=== PATIENT | female | born 1985 | race Two or more races ===

== ENCOUNTER 2020-10-26 19:47 | Emergency (ER) | payer MEDICAID ==
[~2020-10-26] VITALS: Ht 182.9 cm; Wt 140.6 kg
[2020-10-26 19:50] VITALS: BP 132/90
[2020-10-27 02:42] LABS: Basophils # (auto) 0.1 10 ^3/uL (0-0.2); Basophils % (auto) 0.9 % (0.0-2.0); Eosinophils # (auto) 0 10 ^3/uL (0-0.8); Eosinophils % (auto) 0.3 % (0.0-7.0); Hematocrit 43.1 % (36.0-46.0); Hemoglobin 14.3 g/dL (12.2-16.2); Lymphocytes % (auto) 30.6 % (10.0-50.0); Mean Corpuscular Hemoglobin 29.5 pg (28.0-32.0); Mean Corpuscular Hgb Conc. 33.1 g/dL (32.0-36.0); Mean Corpuscular Volume 88.9 fL (80.0-100.0); Monocytes # (auto) 0.4 10 ^3/uL (0-1.3); Monocytes % (auto) 4.5 % (0.0-12.0); Neutrophils # (auto) 6.3 10 ^3/uL (1.6-8.6); Neutrophils % (auto) 63.7 % (37.0-80.0); Red Blood Cells 4.85 10^6/uL (4.0-5.20); Red Cell Distribution Width 14.1 % (11.8-14.3); White Blood Cell 9.8 10^3/uL (4.4-10.8)
[2020-10-27 02:44] LABS: Urine Bacteria FEW /hpf (None Seen); Urine Blood Negative /uL (Negative); Urine Mucus FEW (None Seen); Urine Specific Gravity 1.025 (1.001-1.035); Urine WBC 1 /hpf (0 - 5)
[2020-10-27 02:50] LABS: Alcohol, Urine < 3.0 mg/dL (0-10); Amphetamine Screen, Urine NEGATIVE (NEGATIVE); Barbiturate Scree,Urine NEGATIVE (NEGATIVE); Benzodiazephine Screen, Urine POSITIVE (NEGATIVE); Cannabinoid Screen, Urine POSITIVE (NEGATIVE); Cocaine Screen, Urine NEGATIVE (NEGATIVE); Opiate Scree,Urine NEGATIVE (NEGATIVE); Phencyclidine Screen, Urine NEGATIVE (NEGATIVE)
[2020-10-27 03:07] LABS: Albumin 4.2 g/dL (3.4-5.0); Anion Gap 10 (5-15); Blood Alcohol < 3.0 mg/dL (0-5); Blood Urea Nitrogen 15 mg/dL (7-18); Calcium 9.2 mg/dL (8.5-10.1); Carbon Dioxide 24 mmol/L (21-32); Chloride 104 mmol/L (98-107); Glucose 104 mg/dL (74-106); Magnesium 2.1 mg/dL (1.6-2.6); Potassium 3.9 mmol/L (3.5-5.1); Sodium 138 mmol/L (136-145)
[2020-10-27 03:09] LABS: Alanine Aminotransferase 29 U/L (13-56); Aspartate Aminotransferase 22 U/L (15-37); BUN/Creatinine Ratio 15.6; GFR African American 86 mL/min; GFR Non-African American 71 mL/min; Salicylate < 1.7 mg/dL (2.8-20.0)
[2020-10-27 03:11] LABS: Alkaline Phosphatase 109 U/L (45-117); Bilirubin, Total 0.6 mg/dL (0.2-1.0); Total Protein 8.1 g/dL (6.4-8.2)
[2020-10-27 03:40] LABS: Acetaminophen < 2.0 ug/mL (10-30)
== END 2020-10-27 07:32 | disposition home or self-care (01) ==
LOC: ER 19:52
DX: R45.851 Suicidal ideations (principal); F41.9 Anxiety disorder, unspecified; F32.9 Major depressive disorder, single episode, unspecified; R21 Rash and other nonspecific skin eruption; E11.9 Type 2 diabetes mellitus without complications; E78.5 Hyperlipidemia, unspecified; Z88.2 Allergy status to sulfonamides; Z88.1 Allergy status to other antibiotic agents
CPT/HCPCS: 36415; 80053; 80307; 80320; 80329; 81001; 81025; 83735; 85025

== ENCOUNTER 2021-06-25 16:35 | Emergency (ER) | payer MEDICAID ==
[~2021-06-25] VITALS: Ht 182.9 cm; Wt 150.6 kg
[2021-06-25] MEDS ORDERED: LISI20TA28 PO ×2 (17:33→17:36)
[2021-06-25 17:36] VITALS: BP 124/83
[2021-06-25] MEDS ORDERED: PARO-135 PO (17:36)
== END 2021-06-25 17:48 | disposition home or self-care (01) ==
LOC: ER 16:35
DX: I10 Essential (primary) hypertension (principal); F32.9 Major depressive disorder, single episode, unspecified; E78.5 Hyperlipidemia, unspecified; F12.10 Cannabis abuse, uncomplicated; Z76.0 Encounter for issue of repeat prescription; Z88.2 Allergy status to sulfonamides

== ENCOUNTER 2021-08-06 06:34 | Emergency (ER) | payer MEDICAID ==
[~2021-08-06] VITALS: Ht 182.9 cm; Wt 154.2 kg
[~2021-08-06 06:34] MED LIST: LISI20TA28 PO; PARO-135 PO
[2021-08-06 07:36] VITALS: BP 150/97
== END 2021-08-06 07:40 | disposition home or self-care (01) ==
LOC: ER 06:34
DX: I10 Essential (primary) hypertension (principal); J45.909 Unspecified asthma, uncomplicated; F32.9 Major depressive disorder, single episode, unspecified; E78.5 Hyperlipidemia, unspecified; F12.10 Cannabis abuse, uncomplicated; Z76.0 Encounter for issue of repeat prescription

== ENCOUNTER 2021-09-01 11:15 | Emergency (ER) | payer MEDICAID ==
[~2021-09-01] VITALS: Ht 182.9 cm; Wt 152.4 kg
[2021-09-01] MEDS ORDERED: PARoxetine 20 MG TAB PO ONE (14:30)
[2021-09-01 15:02] VITALS: BP 131/71
[2021-09-01] MEDS ORDERED: METF-370 PO (15:06)
== END 2021-09-01 15:22 | disposition home or self-care (01) ==
LOC: ER 11:15
DX: F32.9 Major depressive disorder, single episode, unspecified (principal); E11.9 Type 2 diabetes mellitus without complications; I10 Essential (primary) hypertension; Z76.0 Encounter for issue of repeat prescription; E78.5 Hyperlipidemia, unspecified; J45.909 Unspecified asthma, uncomplicated; Z90.89 Acquired absence of other organs; Z79.899 Other long term (current) drug therapy; Z88.2 Allergy status to sulfonamides; Z88.1 Allergy status to other antibiotic agents
CPT/HCPCS: 82962

== ENCOUNTER 2024-12-05 14:42 | Emergency (ER) | payer MEDICAID ==
[~2024-12-05] VITALS: Ht 182.9 cm; Wt 150.5 kg
[~2024-12-05 14:42] MED LIST changes: -LISI20TA28 PO; +LISI20TA56 PO; +METF-370 PO
[2024-12-05] MEDS ORDERED: AMOX875T4 PO (18:42)
[2024-12-05] MEDS ORDERED: ACET500T58 PO (18:42)
[2024-12-05] MEDS ORDERED: CIPR1SUS8 OT (18:42)
--- NOTE | 2024-12-05 18:42 | ED.PDOC ---
Eye-HPI HPI Comments 39-year-old female presents to ER with complaints of bilateral earache pain x2 weeks. Patient reports that she has been experiencing bilateral earache pain x2 weeks with associated intermittent yellow drainage from left ear x1 week. She rates her current bilateral earache pain a /10. Denies use of medications for current symptoms. Patient presents to ER ambulatory on arrival, with steady gait, in no distress. Denies fever, recent swimming, skin changes, nausea/vomiting, dizziness, headache or any further symptoms/complaints Chief Complaint: Earache Time Seen by MD: 18:05 Primary Care Provider: NONE Reviewed Notes: Nurses Notes, Medications, Allergies Allergies: Coded Allergies: Sulfa Antibiotics (Verified Allergy, Unknown, 10/26/20) Tetracycline (Verified Allergy, Unknown, 10/26/20) Home Meds Active Scripts Ciprofloxacin-Dexamethasone (Ciprofloxacin/Dexamethaso 0.3-0.1 %) 1 Dinah Dinah, 4 DROP OT BID for 7 Days, #1 BOTTLE 0 Refills Prov:CHERYL BARNES 12/05/24 Amoxicillin & Pot Clavulanate (Amoxicillin/Potassium Cla) 875 Mg Tab, 1 TAB PO B ID for 7 Days, #14 TAB 0 Refills Prov:CHERYL BARNES 12/05/24 Acetaminophen (Acetaminophen) 500 Mg Tab, 500 MG PO Q4HPRN, #30 TAB 0 Refills Prov:CHERYL BARNES 12/05/24 Metformin Hydrochloride (Metformin Hcl) 500 Mg Tab, 1 TAB PO DAILY, #30 TAB 0 Refills Prov:CHERYL BARNES 09/01/21 Paroxetine Hydrochloride (Paroxetine Hydrochloride) 40 Mg Tab, 40 MG PO DAILY for 20 Days, #20 TAB 0 Refills Prov:CINDY GARCIA 06/25/21 Lisinopril (Lisinopril) 20 Mg Tab, 20 MG PO BID for 20 Days, #40 TAB 0 Refills Prov:CINDY GARCIA 06/25/21 Information Source: Patient Mode of Arrival: Ambulatory Past Medical History PAST MEDICAL HISTORY: Anxiety, Arthritis, Asthma, Depression, DM, High Lipids, HTN Surgical History: Tonsillectomy PRETZEL TWISTER History: Denies all PRETZEL TWISTER Hx Family History Family History: Unknown, Family hx of HTN, Family hx of lung dustin Social History Smoker: Non-Smoker Alcohol: Denies ETOH Use Drugs: Denies Drug Use Lives In: Home Constitutional: denies: chills, diaphoresis, fatigue, fever, malaise, sweats, weakness, others EENTM: reports: others (As stated in HPI) Respiratory: denies: cough, hemoptysis, orthopnea, SOB at rest, shortness of breath, SOB with excertion, stridor, wheezing, others Cardiovascular: denies: chest pain, dizzy spells, diaphoresis, Dyspnea on exertion, edema, irregular heart beat, left arm pain, lightheadedness, palpitations, PND, syncope, others Gastrointestinal: denies: abdomen distended, abdominal pain, blood streaked bowels, constipated, diarrhea, dysphagia, difficulty swallowing, hematemesis, melena, nausea, poor appetite, poor fluid intake, rectal bleeding, rectal pain, vomiting, others Genitourinary: denies: abnormal vagina bleeding, burning, dyspareunia, dysuria, flank pain, frequency, hematuria, incontinence, pain, , vagina discharge, urgency, others Neurological: denies: dizziness, fainting, headache, left sided numbness, left sided weakness, numbness, paresthesia, pre-existing deficit, right sided numbness, right sided weakness, seizure, speech problems, tingling, tremors, weakness, others Musculoskeletal: denies: back pain, gout, joint pain, joint swelling, muscle pain, muscle stiffness, neck pain, others Integumetry: denies: bruises, change in color, change in hair/nails, dryness, laceration, lesions, lumps, rash, wounds, others Allergic/Immunocompromised: denies: Difficulty Healing, Frequent Infections, Hives, Itching, others Hematologic/Lymphatic: denies: anemia, blood clots, easy bleeding, easy bruising, swollen glands, others Endocrine: denies: excessive hunger, excessive sweating, excessive thirst, excessive urination, flushing, intolerance to cold, intolerance to heat, unexplained weight gain, unexplained weight loss, others Psychiatric: denies: anxiety, bipolar disorder, depression, hopeless, panic disorder, schizophrenia, sleepless, suicidal, others Physical Exam General Appearance: No Apparent Distress HEENT: PERRL/EOMI, Pharynx Normal, Other (Mild erythema/bulging noted to left TM, minimal swelling also noted to left middle ear canal without drainage. Remainder bilateral ear exam-unremarkable) Neck: Full Range of Motion, Non-Tender, Normal Respiratory: Chest Non-Tender, Lungs Clear, No Accessory Muscle Use, No Respiratory Distress, Normal Breath Sounds Cardiovascular: No Murmur, No Gallop, Regular Rate/Rhythm Breast Exam: Deferred Gastrointestinal: NOT DONE Genitalia: Deferred Pelvic: Deferred Rectal: Deferred Extremities: Normal capillary refill, Normal range of motion Neurologic: Alert, director of community center II-XII nml as Tested, No Motor Deficits, Normal Affect, Normal Mood, No Sensory Deficits Cerebellar Function: Normal Reflexes: Normal Skin: Dry, Normal Color, Warm Lymphatic: No Adenopathy Was a procedure done? Was a procedure done?: No Sedation Sedation?: No EENT DIFF Eye: N/A Ear: Abrasion, Cerumen Impaction, Foreign Body, Otitis Externa, Perforation X-Ray, Labs, Meds, VS Vital Signs Date Time Temp Pulse Resp B/P (MAP) Pulse Ox O2 Delivery O2 Flow Rate FiO2 12/05/24 15:33 97.8 90 16 124/71 (88) 95 97.8 Advised to follow up with PCP in 1-2 days Patient verbalized understanding and agreeable with current plan of care Advised to return to ER immediately if symptoms worsen Time of 1ST Reevaluation: 18:24 Reevaluation 1ST: N/A Patient Education/Counseling: Diagnosis, Treatment, Prognosis, Need For Follow Up Family Education/Counseling: No Family Present Departure 1 Departure Time of Disposition: 18:40 Impression: Primary Impression: Otitis media of left ear Qualified Codes: H66.92 - Otitis media, unspecified, left ear Additional Impression: Otalgia of right ear Disposition: HOME / SELF CARE / HOMELESS Condition: Stable e-Prescriptions Ciprofloxacin-Dexamethasone (Ciprofloxacin/Dexamethaso 0.3-0.1 %) 1 Dinah Dinah 4 DROP OT BID for 7 Days, #1 BOTTLE 0 Refills Prov: CHERYL BARNES 12/05/24 Amoxicillin & Pot Clavulanate (Amoxicillin/Potassium Cla) 875 Mg Tab 1 TAB PO BID for 7 Days, #14 TAB 0 Refills Prov: CHERYL BARNES 12/05/24 Acetaminophen (Acetaminophen) 500 Mg Tab 500 MG PO Q4HPRN, #30 TAB 0 Refills Prov: CHERYL BARNES 12/05/24 Discharged With: Self Critical Care Note Critical Care Time?: No Stability Stability form required: No Heart Score Heart Score: Heart Score Response (Comments) Value History N/A 0 EKG N/A 0 Age N/A 0 Risk Factors N/A 0 Troponin N/A 0 Total 0 CHERYL BARNES December 05, 2024 18:42
[2024-12-05 18:50] VITALS: BP 124/71; PULSE 90; RESP 16; TEMP 97.8; O2SAT 98
== END 2024-12-05 18:51 | disposition home or self-care (01) ==
LOC: ER 14:46
DX: H66.92 Otitis media, unspecified, left ear (principal); H92.01 Otalgia, right ear; I10 Essential (primary) hypertension; E11.9 Type 2 diabetes mellitus without complications; E78.5 Hyperlipidemia, unspecified; F32.A Depression, unspecified; F41.9 Anxiety disorder, unspecified; J45.909 Unspecified asthma, uncomplicated; M19.90 Unspecified osteoarthritis, unspecified site; Z79.84 Long term (current) use of oral hypoglycemic drugs; Z79.899 Other long term (current) drug therapy; Z90.89 Acquired absence of other organs; Z88.1 Allergy status to other antibiotic agents; Z88.2 Allergy status to sulfonamides